=== PATIENT | female | born 1955 | race Caucasian/White ===

== ENCOUNTER → 2018-04-23 | Outpatient (CLI) | payer OTHER ==
[~2018-04-23] MED LIST: HEPARIN for NUC MED 500 UNIT/5 ML DISP.SYRIN. IV ONE
== END | disposition home or self-care (01) ==
LOC: NM 08:23
PROVIDERS: ATTEND Internal Medicine Gastroenterology
DX: D18.03 Hemangioma of intra-abdominal structures (principal)
CPT/HCPCS: 78205; 96374; A9560